=== PATIENT | female | born 1990 | race Native Hawaiian/Other Pacific Islander ===

== ENCOUNTER 2020-05-08 09:03 | Emergency (ER) | payer OTHER ==
[~2020-05-08] VITALS: Ht 160 cm; Wt 59.0 kg
[2020-05-08 09:12] VITALS: BP 119/82; TEMP 96.9
== END 2020-05-08 10:12 | disposition home or self-care (01) ==
LOC: ED 09:03
DX: K08.89 Other specified disorders of teeth and supporting structures (principal); F17.210 Nicotine dependence, cigarettes, uncomplicated
CPT/HCPCS: 96372; 99283; J1885; J2930

== ENCOUNTER 2021-11-14 11:53 | Emergency (ER) | payer OTHER ==
[~2021-11-14] VITALS: Ht 160 cm; Wt 63.5 kg
[2021-11-14 12:01] VITALS: BP 129/56; TEMP 98.3
[2021-11-14 13:13] LABS: PLATELET COUNT 217 K/uL (152-353)
== END 2021-11-14 14:28 | disposition home or self-care (01) ==
LOC: ED 11:53
PROVIDERS: Emergency Medicine Emergency Medical Services
DX: N93.8 Other specified abnormal uterine and vaginal bleeding (principal)
CPT/HCPCS: 36415; 81002; 81025; 85027; 85610; 96360; 99284